=== PATIENT | male | born 1980 | race African-American/Black ===

== ENCOUNTER 2018-04-05 12:52 | Emergency (ER) | payer SELFPAY ==
[~2018-04-05] VITALS: Ht 195.6 cm; Wt 93.0 kg
[2018-04-05 12:54] VITALS: BP 136/71
== END 2018-04-05 16:53 | disposition left against medical advice (07) ==
LOC: ER 12:52
DX: Z53.21 Procedure and treatment not carried out due to patient leaving prior to being seen by health care provider (principal)

== ENCOUNTER 2025-04-11 19:27 | Emergency (ER) | payer MEDICARE ==
[~2025-04-11] VITALS: Ht 193 cm; Wt 90.0 kg
[2025-04-11 19:28] VITALS: TEMP 37.1; O2SAT 99
[2025-04-11] MEDS: IBUPROFEN 600MG TABLET PO ONE (22:53)
[2025-04-11] MEDS: GABAPENTIN 300MG CAPSULE PO ONE (22:53)
[2025-04-12] MEDS ORDERED: IBUP-2030 MT (00:11)
[2025-04-12 00:41] VITALS: BP 133/76; PULSE 70; RESP 16; O2SAT 100
== END 2025-04-12 00:45 | disposition home or self-care (01) ==
LOC: ER 19:27
DX: T68.XXXA Hypothermia, initial encounter (principal); M79.671 Pain in right foot; M79.672 Pain in left foot; R20.0 Anesthesia of skin; R20.2 Paresthesia of skin; X31.XXXA Exposure to excessive natural cold, initial encounter; Y93.89 Activity, other specified; Y92.89 Other specified places as the place of occurrence of the external cause; Y99.8 Other external cause status
CPT/HCPCS: 99283